=== PATIENT | female | born 1930 | race Two or more races ===

== ENCOUNTER 2020-12-16 06:40 | Day surgery (SDC) | payer OTHER ==
[~2020-12-16 06:40] MED LIST: CLONAZEPAM0.5 MG PO; MICARDIS80 MG PO; MILLIPRED5 MG PO; SYNTHROID88 MCG PO
== END 2020-12-16 16:50 | disposition home or self-care (01) ==
LOC: CIR.AMB 06:40
PROVIDERS: ATTEND Colon & Rectal Surgery
DX: R15.9 Full incontinence of feces (principal)
CPT/HCPCS: 64581; C1778

== ENCOUNTER 2020-12-30 05:45 | Day surgery (SDC) | payer OTHER | END 2020-12-30 12:45 | disposition home or self-care (01) | LOC: CIR.AMB 05:45 | PROVIDERS: ATTEND Colon & Rectal Surgery | DX: R15.9 Full incontinence of feces (principal); Z20.822 Contact with and (suspected) exposure to COVID-19 | CPT/HCPCS: 64590; 95971; L8679 ==